=== PATIENT | male | born 2000 | race Caucasian/White ===

== ENCOUNTER 2020-08-09 09:40 | Outpatient (RCR) | payer OTHER | END 2020-08-13 11:38 | LOC: WSOH 09:40 | DX: S16.1XXA Strain of muscle, fascia and tendon at neck level, initial encounter (principal); V89.9XXA Person injured in unspecified vehicle accident, initial encounter; D89.89 Other specified disorders involving the immune mechanism, not elsewhere classified; F95.2 Tourette's disorder; Z90.89 Acquired absence of other organs; Y99.0 Civilian activity done for income or pay ==